=== PATIENT | male | born 1990 | race Caucasian/White ===

== ENCOUNTER 2021-05-06 16:36 | Emergency (ER) | payer OTHER, SELFPAY ==
[2021-05-06 16:44] VITALS: BP 167/102; PULSE 76; RESP 18; TEMP 36.7; O2SAT 98; BMI 34.4
--- NOTE | 2021-05-06 16:56 | DI.RAD.S_ITS ---
PROCEDURE: XR CHEST 2V INDICATIONS: covid positive TECHNIQUE: 2 views of the chest were acquired. COMPARISON: None. FINDINGS: Surgical changes and devices: Cholecystectomy clips are seen. Lungs and pleura: Minimal bilateral interstitial infiltrates are seen. No pleural effusions or pneumothorax. Mediastinum: Mediastinal contours are normal. Heart size is normal. Bones and chest wall: No suspicious bony abnormalities. Soft tissues appear unremarkable. IMPRESSION: There minimal bilateral interstitial infiltrates seen, which are consistent with mild/early COVID pneumonia. Dictated by: Juan Hartman M.D. on 05/06/2021 at 16:24 Approved by: Juan Hartman M.D. on 05/06/2021 at 16:24
[2021-05-06 17:46] LABS: Add Manual Diff / Slide Review NO; Basophils Absolute Auto 0 /uL (0-100); Basophils Percent Auto 0.4 % (0-2); Eosinophils Absolute Auto 0 /uL (0-450); Eosinophils Percent Auto 0.1 % (2-4); Hematocrit 46.9 % (41-53); Hemoglobin 16.2 g/dL (13.5-17.5); Lymphocytes Absolute Auto 1200 /uL (1100-4500); Lymphocytes Percent Auto 21.2 % (25-40); Mean Corpuscular HGB Conc 34.7 % (30-36); Mean Corpuscular Hemoglobin 29.5 PG (26-34); Mean Corpuscular Volume 85.1 fL (80-100); Monocytes Absolute Auto 500 /uL (0-900); Neutrophils Absolute Auto 4000 /uL (1500-7000); Neutrophils Percent Auto 69.3 % (50-75); Platelet Count 178 X10^3/uL (150-400); Red Blood Cell Count 5.51 X10^6/uL (4.5-5.9); Red Cell Distribution Width 12.9 % (11.6-14.8); White Blood Cell Count 5.8 X10^3/uL (4.5-11.0)
[2021-05-06 17:52] LABS: COVID19 -Nasal RAPID POSITIVE (Negative)
[2021-05-06 17:57] LABS: Alanine Aminotransferase 73 IU/L (<50); Albumin 4.6 g/dL (3.5-5.0); Albumin Globulin Ratio 1.4 (1.0-2.8); Alkaline Phosphatase 69 U/L (38-126); Aspartate Aminotransferase 49 IU/L (17-59); BUN Creatinine Ratio 17.8 (6-22); Bilirubin Total 0.5 mg/dL (0.2-1.3); Blood Urea Nitrogen 13 mg/dL (9-20); Calcium 9.6 mg/dL (8.4-10.2); Carbon Dioxide 26 mmol/L (22-32); Chloride 105 mmol/L (98-107); Creatine Kinase 150 U/L (55-170); Estimated Glomerular Filt Rate > 60.0 mL/min (>60); Globulin 3.3 g/dL (1.7-4.1); Glucose 103 mg/dL (70-100); Lipase 50 U/L (23-300); Potassium 4.1 mmol/L (3.4-5.1); Sodium 140 mmol/L (137-145); Total Protein 7.9 g/dL (6.3-8.2)
[2021-05-06 18:08] LABS: Troponin I < 0.012 ng/mL (0.01-0.034)
[2021-05-06 18:12] LABS: CKMB % Relative Index 1.6 % (1.5-5.0); Creatine Kinase MB 2.46 ng/mL (<2.37)
[2021-05-06 18:14] LABS: HEMOLYSIS 81 (0-50)
--- NOTE | 2021-05-06 18:42 | ED.URI ---
HPI - URI/Sore Throat <Lalo Bran PA-C - Last Filed: 05/06/21 19:19> General Chief Complaint: Upper Respiratory Symptoms Stated Complaint: COVID+, Worsening Symptoms Time Seen by Provider: 05/06/21 17:32 Source: patient Mode of arrival: Ambulatory Limitations: no limitations History of Present Illness HPI Narrative: Chance presents today with chief complaint of body aches, chest tightness, fatigue that started on Saturday. He reports that he was at work and had to leave early because he was so tired. He was also getting sweaty with minimal exertion. He went home and slept for over 12 hours and then made an appointment to get tested for COVID. He came back positive. He reports that he has been isolating in his home away from his girlfriend and their 2-month-old daughter as well as their [id number] daughter. They, so far, have not had any significant symptoms. He is able to tolerate oral intake and has been using Mucinex, emergent C, Robitussin, zinc for the last 2 days. He also got a pulse oximeter earlier this morning. He reports that his oxygen levels have been in the high 90s. Related Data Allergies Allergy/AdvReac Type Severity Reaction Status Date / Time Penicillins Allergy Verified 05/06/21 16:44 Review of Systems <Lalo Bran PA-C - Last Filed: 05/06/21 19:19> Review of Systems Narrative: As per HPI Patient History <Lalo Bran PA-C - Last Filed: 05/06/21 19:19> Social History Smoking Status: Former smoker Smoking Status: Former smoker Substance Use Type: marijuana Exam <Lalo Bran PA-C - Last Filed: 05/06/21 19:19> Narrative Exam Narrative: Exam Narrative: Const General: cooperative, healthy appearing, comfortable, no acute distress, well developed and well groomed Nutritional Appearance: average body habitus Orientation: alert and oriented x3 HENMT Head: normal to inspection and atraumatic Ears: hearing grossly normal bilaterally Nose: external nose normal and nares normal Face and sinus: normal facial exam Neck Neck: normal visual inspection and supple Resp Effort & Inspection: normal respiratory effort, able to speak in complete sentences, no audible wheezes, not labored, no nasal flaring and no respiratory distress, clear to auscultation bilaterally, Cardiac Regular rate and rhythm, no discernible murmurs, rubs or gallops. Neuro General: alert, oriented x3, gait normal, tone normal and moves all extremities Cognition: normal cognition Speech: speech normal Gait: normal gait Psych Appearance: grossly normal and well kempt Mental Status: mental status grossly normal Speech and Movement: speech and movement normal Mood: congruent mood Affect: normal affect Initial Vital Signs Initial Vital Signs: Vital Signs Temperature 98.1 F 05/06/21 16:44 Pulse Rate 76 05/06/21 16:44 Respiratory Rate 18 05/06/21 16:44 Blood Pressure 167/102 H 05/06/21 16:44 Pulse Oximetry 98 05/06/21 16:44 <DO Sarah Casas Last Filed: 05/06/21 22:10> Initial Vital Signs Initial Vital Signs: Vital Signs Temperature 98.1 F 05/06/21 16:44 Pulse Rate 76 05/06/21 16:44 Respiratory Rate 18 05/06/21 16:44 Blood Pressure 167/102 H 05/06/21 16:44 Pulse Oximetry 98 05/06/21 16:44 Course <Lalo Bran PA-C - Last Filed: 05/06/21 19:19> Orders Ordered: ED Orders 05/06/21 16:52 EKG-12 Lead Stat 05/06/21 16:56 XR chest 2V Stat 05/06/21 17:00 COVID19 -Nasal swab/Pre-Proc Stat 05/06/21 17:20 Complete Blood Count AUTO DIFF Stat Comprehensive Metabolic Panel Stat Lipase Stat Troponin & CK Cardiac Panel Stat Discontinued Medications Aspirin (Aspirin 81 Mg Chew Tab) 324 mg PO NOW ONE Stop: 05/06/21 16:53 Last Admin: 05/06/21 17:31 Dose: Not Given Documented by: LARY Vital Signs Vital signs: Vital Signs - 8 hr 05/06/21 16:44 05/06/21 20:01 Temperature 98.1 F Pulse Rate 76 73 Respiratory Rate 18 14 Blood Pressure 167/102 H 154/104 H Pulse Oximetry 98 99 <DO Sarah Casas Last Filed: 05/06/21 22:10> Orders Ordered: ED Orders 05/06/21 16:52 EKG-12 Lead Stat 05/06/21 16:56 XR chest 2V Stat 05/06/21 17:00 COVID19 -Nasal swab/Pre-Proc Stat 05/06/21 17:20 Complete Blood Count AUTO DIFF Stat Comprehensive Metabolic Panel Stat Lipase Stat Troponin & CK Cardiac Panel Stat Discontinued Medications Aspirin (Aspirin 81 Mg Chew Tab) 324 mg PO NOW ONE Stop: 05/06/21 16:53 Last Admin: 05/06/21 17:31 Dose: Not Given Documented by: LARY Vital Signs Vital signs: Vital Signs - 8 hr 05/06/21 16:44 05/06/21 20:01 Temperature 98.1 F Pulse Rate 76 73 Respiratory Rate 18 14 Blood Pressure 167/102 H 154/104 H Pulse Oximetry 98 99 MDM - URI/Sore Throat <Lalo Bran PA-C - Last Filed: 05/06/21 19:19> Lab Data Result diagrams: 05/06/21 17:20 05/06/21 17:20 Labs: Lab Results 05/06/21 05/06/21 05/06/21 Range/Units 17:00 17:20 17:20 WBC 5.8 (4.5-11.0) X10^3/uL RBC 5.51 (4.5-5.9) X10^6/uL Hgb 16.2 (13.5-17.5) g/dL Hct 46.9 (41-53) % MCV 85.1 (80-100) fL MCH 29.5 (26-34) PG MCHC 34.7 (30-36) % RDW 12.9 (11.6-14.8) % Plt Count 178 (150-400) X10^3/uL Neut % (Auto) 69.3 (50-75) % Lymph % (Auto) 21.2 L (25-40) % [place] % (Auto) 9.0 (3-14) % Eos % (Auto) 0.1 L (2-4) % Baso % (Auto) 0.4 (0-2) % Neut # (Auto) 4000 (7320-4791) /uL Lymph # (Auto) 1200 (7197-2093) /uL [place] # (Auto) 500 (0-900) /uL Eos # (Auto) 0 (0-450) /uL Baso # (Auto) 0 (0-100) /uL Sodium 140 (137-145) mmol/L Potassium 4.1 (3.4-5.1) mmol/L Chloride 105 (98-107) mmol/L Carbon Dioxide 26 (22-32) mmol/L BUN 13 (9-20) mg/dL Creatinine 0.73 (0.66-1.25) mg/dL Estimated GFR > 60.0 (>60) mL/min BUN/Creatinine Ratio 17.8 (6-22) Glucose 103 H (70-100) mg/dL Calcium 9.6 (8.4-10.2) mg/dL Total Bilirubin 0.5 (0.2-1.3) mg/dL AST 49 (17-59) IU/L ALT 73 H (<50) IU/L Alkaline Phosphatase 69 (38-126) U/L Total Creatine Kinase 150 (55-170) U/L CK-MB (CK-2) 2.46 H (<2.37) ng/mL CK-MB (CK-2) Rel Index 1.6 (1.5-5.0) % Troponin I < 0.012 (0.01-0.034) ng/mL Total Protein 7.9 (6.3-8.2) g/dL Albumin 4.6 (3.5-5.0) g/dL Globulin 3.3 (1.7-4.1) g/dL Albumin/Globulin Ratio 1.4 (1.0-2.8) Lipase 50 (23-300) U/L SARS-CoV-2 (PCR) Positive H (Negative) MDM Narrative Medical decision making narrative: Differential diagnosis includes pneumonia, pulmonary embolism, pericarditis, myocarditis. Patient is oxygenating well and has a reassuring physical examination at this time. He has possible developing pneumonia which is consistent with his COVID diagnosis. We discussed his return precautions in detail. Patient verbalizes understanding and agrees to plan and has no further concerns at this time. Thank you A [id number] system was used with the dictation of this note. Please disregard any spelling or grammatical errors. <Rosalia Love, - Last Filed: 05/06/21 22:10> Lab Data Labs: Lab Results 05/06/21 05/06/21 05/06/21 Range/Units 17:00 17:20 17:20 WBC 5.8 (4.5-11.0) X10^3/uL RBC 5.51 (4.5-5.9) X10^6/uL Hgb 16.2 (13.5-17.5) g/dL Hct 46.9 (41-53) % MCV 85.1 (80-100) fL MCH 29.5 (26-34) PG MCHC 34.7 (30-36) % RDW 12.9 (11.6-14.8) % Plt Count 178 (150-400) X10^3/uL Neut % (Auto) 69.3 (50-75) % Lymph % (Auto) 21.2 L (25-40) % [place] % (Auto) 9.0 (3-14) % Eos % (Auto) 0.1 L (2-4) % Baso % (Auto) 0.4 (0-2) % Neut # (Auto) 4000 (8659-4620) /uL Lymph # (Auto) 1200 (2718-4924) /uL [place] # (Auto) 500 (0-900) /uL Eos # (Auto) 0 (0-450) /uL Baso # (Auto) 0 (0-100) /uL Sodium 140 (137-145) mmol/L Potassium 4.1 (3.4-5.1) mmol/L Chloride 105 (98-107) mmol/L Carbon Dioxide 26 (22-32) mmol/L BUN 13 (9-20) mg/dL Creatinine 0.73 (0.66-1.25) mg/dL Estimated GFR > 60.0 (>60) mL/min BUN/Creatinine Ratio 17.8 (6-22) Glucose 103 H (70-100) mg/dL Calcium 9.6 (8.4-10.2) mg/dL Total Bilirubin 0.5 (0.2-1.3) mg/dL AST 49 (17-59) IU/L ALT 73 H (<50) IU/L Alkaline Phosphatase 69 (38-126) U/L Total Creatine Kinase 150 (55-170) U/L CK-MB (CK-2) 2.46 H (<2.37) ng/mL CK-MB (CK-2) Rel Index 1.6 (1.5-5.0) % Troponin I < 0.012 (0.01-0.034) ng/mL Total Protein 7.9 (6.3-8.2) g/dL Albumin 4.6 (3.5-5.0) g/dL Globulin 3.3 (1.7-4.1) g/dL Albumin/Globulin Ratio 1.4 (1.0-2.8) Lipase 50 (23-300) U/L SARS-CoV-2 (PCR) Positive H (Negative) Imaging Data Chest x-ray: Radiologist's Impression: PROCEDURE: XR CHEST 2V INDICATIONS: covid positive TECHNIQUE: 2 views of the chest were acquired. COMPARISON: None. FINDINGS: Surgical changes and devices: Cholecystectomy clips are seen. Lungs and pleura: Minimal bilateral interstitial infiltrates are seen. No pleural effusions or pneumothorax. Mediastinum: Mediastinal contours are normal. Heart size is normal. Bones and chest wall: No suspicious bony abnormalities. Soft tissues appear unremarkable. IMPRESSION: There minimal bilateral interstitial infiltrates seen, which are consistent with mild/early COVID pneumonia. Dictated by: Juan Hartman M.D. on 05/06/2021 at 16:24 Approved by: Juan Hartman M.D. on 05/06/2021 at 16:24 Discharge Plan Departure Patient Disposition: Home Clinical Impression: COVID-19 Instructions: DI for COVID-19 (Suspected or Confirmed ) Activity Restrictions/Additional Instructions: It was nice to meet you this evening. Your examination today has been reassuring. However, it appears that you may be developing mild pneumonia. This is something that is often seen with COVID infections. Please self isolate at home and use [id number] medications to help your symptoms. If your oxygen saturation gets consistently below 92% on room air please return for re-evaluation. At that time hospitalization with oxygen therapy may be needed. Thank you Lalo Bran PA-C <Rosalia Love, DO - Last Filed: 05/06/21 22:10> Sign Out Provider Sign Out Attestation: I was immediately available in the department for consultation. Documentation has been reviewed. I agree with assessment and plan.
[2021-05-06 20:01] VITALS: BP 154/104; PULSE 73; RESP 14; O2SAT 99
--- NOTE | 2021-05-06 20:40 | PC.NURSE ---
patient was experiencing shortness of breath on exertion at home and was concerned that he was needing to be seen. He had nasal congestion and was feeling a chest pain with inspiration.
== END 2021-05-06 20:03 | disposition home or self-care (01) ==
PROVIDERS: Emergency Medicine; Emergency Provider Physician Assistant
DX: U07.1 COVID-19 (principal); R07.9 Chest pain, unspecified
CPT/HCPCS: 71046; 80053; 82550; 82553; 83690; 84484; 85025; 87635; 93005; 93010; 99281; 99284; C9803

== ENCOUNTER → 2022-08-31 15:07 | Outpatient (CLI) | payer SELFPAY ==
--- NOTE | 2022-08-31 15:11 | DI.RAD.S_ITS ---
PROCEDURE: XR HAND LT MIN 3V INDICATIONS: Left hand pain TECHNIQUE: 3 views of the hand(s) acquired. COMPARISON: None. FINDINGS: Bones: There is a comminuted, mildly displaced intra-articular fracture involving the 2nd proximal phalanx. Carpal bones are normally aligned. No suspicious bony lesions. Soft tissues: No suspicious soft tissue calcifications. Soft tissue swelling at the base of the 2nd finger. IMPRESSION: Comminuted intra-articular fracture of the 2nd proximal phalanx. Dictated by: Delmer Mar M.D. on 08/31/2022 at 16:43 Approved by: Delmer Mar M.D. on 08/31/2022 at 16:44
== END ==
PROVIDERS: PCP Family Medicine; Referring Provider Family Medicine; Visit Provider Family Medicine
DX: S62.611A Displaced fracture of proximal phalanx of left index finger, initial encounter for closed fracture (principal); M79.642 Pain in left hand; X58.XXXA Exposure to other specified factors, initial encounter
CPT/HCPCS: 73130